=== PATIENT | male | born 2000 | race Caucasian/White ===

== ENCOUNTER 2021-03-25 03:57 | Emergency (ER) | payer SELFPAY ==
[~2021-03-25] VITALS: Ht 160 cm; Wt 56.9 kg
[2021-03-25 04:01] VITALS: BP 114/70
--- NOTE | 2021-03-25 04:01 | NUR ---
TO BED AMBULATORY
--- NOTE | 2021-03-25 04:36 | NUR ---
20 yo m bib self with c/c of 10/10 burning abd pain x2 days. pt states the pain start at abd and radiates to back, once pain begins it's difficult to breath. pt stated he has a hx of gastritis and the pain he is experiencing is similar to the last time this happened. abd is tender, bowel sounds x4 quads. denies n/v/d. pt took omeprazole for pain with no relief. hx: gastritis rx; omeprazole nka
[2021-03-25] MEDS ORDERED: FAMOTIDINE 20 MG/2 ML VIAL IVP ONE (04:50)
[2021-03-25] MEDS ORDERED: NACL 0.9% 1,000 ML IV ONE (04:50)
[2021-03-25] MEDS ORDERED: MORPHINE SULFATE 4 MG/ML SYR IVP ONE (04:50)
--- NOTE | 2021-03-25 04:55 | NUR ---
pt does not want to urinate at this time, gave water to encourage urination.
--- NOTE | 2021-03-25 06:00 | NUR ---
pt is resting, equal rise and fall of chest wall. vss. pt in stable condition. side rails x2, bed locked in lowest position.
[2021-03-25 06:11] LABS: ALBUMIN 4.3 g/dL (3.4-5.0); ANION GAP 11.2 (8-16); CARBON DIOXIDE 28.6 mmol/L (21-32); CREATININE 0.8 mg/dL (0.6-1.3); POTASSIUM 3.8 mmol/L (3.5-5.1); TOTAL BILIRUBIN 1.5 mg/dL (0.0-1.0)
[2021-03-25 06:15] LABS: BASOPHILS % (AUTO) 0.1 % (0.0-2.0); EOSINOPHILS % (AUTO) 0.1 % (0.0-4.0); HEMATOCRIT 43.5 % (36-52); HEMOGLOBIN 14.8 g/dL (12.0-18.0); LYMPHOCYTES # (AUTO) 1.6 K/uL (2.0-11.5); LYMPHOCYTES % (AUTO) 12.1 % (20.5-51.1); MEAN CORPUSCULAR HEMOGLOBIN 29 pg (27-31); MEAN CORPUSCULAR HGB CONC 34 g/dL (33-37); MEAN CORPUSCULAR VOLUME 85.7 fL (80-94); MONOCYTES % (AUTO) 7.4 % (1.7-9.3); NEUTROPHILS # (AUTO) 10.4 K/uL (1.8-7.7); NEUTROPHILS % (AUTO) 80.3 % (42.2-75.2); PLATELET COUNT (AUTO) 232 K/uL (140-450); RED BLOOD CELL COUNT(AUTO) 5.08 MIL/uL (4.20-6.10); RED CELL DISTRIBUTION WIDTH 13.3 % (11.6-13.7)
--- NOTE | 2021-03-25 06:50 | NUR ---
us at bedside.
--- NOTE | 2021-03-25 07:14 | NUR ---
report given to vicente rodney. transfer of care at this time.
--- NOTE | 2021-03-25 08:00 | NUR ---
PATIENT APPEARS TO BE RESTING WITH EYES CLOSED. ALL NEEDS MET AT THIS TIME.
[2021-03-25 09:35] VITALS: BP 101/45
--- NOTE | 2021-03-25 09:35 | NUR ---
Patient discharged with v/s stable. Written and verbal after care instructions given and explained. Patient verbalized understanding. Ambulatory with steady gait. All questions addressed prior to discharge. Advised to follow up with PMD.
== END 2021-03-25 09:35 | disposition home or self-care (01) ==
LOC: MED 03:57
DX: R10.13 Epigastric pain (principal); R11.0 Nausea
CPT/HCPCS: 36415; 76705; 80053; 82150; 83690; 85025; 96361; 96374; 96375; 99284; J2270; J3490; J7030; Q0092